=== PATIENT | male | born 1995 | race Two or more races ===

== ENCOUNTER 2016-05-16 07:35 | Emergency (ER) | payer MEDICAID, OTHER ==
[2016-05-16] MEDS ORDERED: IOPAMIDOL 300 (61%) 150 ML VIAL IV ONE (07:36)
[2016-05-16] MEDS ORDERED: LACTATED RINGERS 1,000 ML ONE (08:04)
[2016-05-16] MEDS ORDERED: HYDROMORPHONE HCL 1 MG/ML SYRINGE ONE ×2 (08:04→10:11)
[2016-05-16] MEDS ORDERED: ONDANSETRON 4 MG/2ML 2 ML VIAL ONE (08:04)
[2016-05-16 08:15] LABS: ABSOLUTE NEUTROPHIL COUNT 14.1 K/mm3 (1.8-7.7); BASO # 0.1 K/mm3 (0.0-0.2); BASO % 0.5 % (0.2-1.0); EOS % 0.2 % (0.9-2.9); HEMATOCRIT 48.3 % (32.0-52.0); HEMOGLOBIN 16.5 gm/l (14.0-18.0); IMM NEUT # 0.2 K/mm3 (0-0.2); IMM NEUT% 0.8 % (0-1); LYMPH # 3.6 (1.0-4.8); LYMPH % 18.9 % (15-45); MEAN CELL VOLUME 89.1 fl (80.0-94.0); MEAN CORPUSCULAR HEMOGLOBIN 30.4 pg (27.0-31.0); MEAN CORPUSCULAR HGB CONC 34.2 g/dl (33.0-37.0); MEAN PLATELET VOLUME 9.2 fl (7.4-10.4); MONO # 1.1 (0.0-0.8); NEUT % 73.6 % (43-75); PLATELET COUNT 320 K/mm3 (130-400); RED CELL DISTRIBUTION WIDTH 12.1 % (11.5-14.5)
[2016-05-16 08:44] LABS: ALB/GLOB RATIO 1.6 (>1.0); ALBUMIN 4.9 gm/dL (3.5-5.7); CALCIUM 10.2 mg/dL (8.6-10.3)
[2016-05-16] MEDS ORDERED: LORAZEPAM 2 MG/ML 1ML SDV ONE (08:47)
--- NOTE | 2016-05-16 10:17 | CT ---
Exam Type: ABD/PELVIS W/ CON Date and Time: 05/16/2016 9:45 AM Clinical information: Abdominal pain with nausea and vomiting. Comparison: 04/20/2010 Technique: Contiguous axial 4 mm images were obtained from the lung bases through the pelvis after the uneventful IV administration of 125 cc of Isovue-300. Sagittal and coronal reformations with high resolution lung algorithm images were also obtained at this time. CT DI: 21.2 DLP 1158.3 FINDINGS: Lung base :No abnormality is identified at the lung bases. Visualized heart:There is no pericardial effusion. LIVER: within normal limits. BILE DUCTS: normal caliber. GALLBLADDER: No calcified gallstones. Normal caliber wall. PANCREAS: within normal limits. SPLEEN: within normal limits. ADRENALS: within normal limits. KIDNEYS: within normal limits. Stomach and small BOWEL: Normal caliber. Large bowel: Air and stool are noted within the large bowel. Appendix is normal. LYMPH NODES: No enlarged mesenteric lymph nodes. PERITONEUM: no ascites or free air, no fluid collection. VESSELS: within normal limits RETROPERITONEUM: within normal limits. ABDOMINAL WALL: Incidental note is made of right inguinal testis. Bladder: Normal BONES: within normal limits. IMPRESSION: No acute inflammatory process is noted within the abdomen or pelvis. Appendix is normal. Incidental note is made of inguinal testis on the right. Close clinical and radiographic follow-up are recommended. Report was uploaded to the electronic medical record at approximately 1014 hours on 05/16/2016.
[2016-05-16] MEDS ORDERED: ONDANSETRON 4 MG ODT TAB ONE (11:39)
[2016-05-16] MEDS ORDERED: HYDROCODONE/ACETAMINOPHEN 5/325MG TABLET ONE (11:59)
== END 2016-05-16 13:00 | disposition home or self-care (01) ==
LOC: ED 07:35
DX: R10.9 Unspecified abdominal pain (principal); R19.7 Diarrhea, unspecified; R11.2 Nausea with vomiting, unspecified
CPT/HCPCS: 83690; 85025; 80053; 74177; 96375 ×2; 96376; 99284 ×2; 96374; 96361; J2060; J1170 ×2; J2405; J7120; A9270 ×2; Q9967

== ENCOUNTER 2016-05-18 08:13 | Emergency (ER) | payer MEDICAID ==
[2016-05-18] MEDS ORDERED: METOCLOPRAMIDE HCL 5 MG/ML 2ML VIAL ONE (08:51)
[2016-05-18] MEDS ORDERED: MAALOX/LIDO2%VISC/SIMETHICONE 40 ML BOT ONE (09:04)
[2016-05-18] MEDS ORDERED: KETOROLAC TROMETHAMINE 30 MG/ML 1 ML VIAL ONE (09:04)
[2016-05-18] MEDS ORDERED: MORPHINE SULFATE 2 MG/ML SYRINGE ONE (09:40)
[2016-05-18] MEDS ORDERED: DIAZEPAM 5 MG/ML SYRINGE 2 ML ONE (09:40)
[2016-05-18] MEDS ORDERED: DICYCLOMINE HCL 10 MG CAPSULE ONE (10:39)
[2016-05-18] MEDS ORDERED: HALOPERIDOL LACTATE 5 MG/1 ML AMP ONE (10:40)
[2016-05-18] MEDS ORDERED: NALBUPHINE HCL 10 MG/ML AMP ONE ×2 (11:20→11:33)
== END 2016-05-18 11:58 | disposition home or self-care (01) ==
LOC: ED 08:13
DX: R11.10 Vomiting, unspecified (principal); R10.9 Unspecified abdominal pain; Z79.891 Long term (current) use of opiate analgesic; Z79.899 Other long term (current) drug therapy

== ENCOUNTER 2016-05-20 06:31 | Emergency (ER) | payer MEDICAID ==
[2016-05-20] MEDS ORDERED: DIPHENHYDRAMINE HCL 50 MG/1 ML VIAL ONE (06:46)
[2016-05-20] MEDS ORDERED: METOCLOPRAMIDE HCL 5 MG/ML 2ML VIAL ONE (06:46)
[2016-05-20] MEDS ORDERED: KETOROLAC TROMETHAMINE 60 MG/2 ML VIAL ONE (06:46)
[2016-05-20] MEDS ORDERED: DIAZEPAM 5 MG/ML SYRINGE 2 ML ONE (06:46)
== END 2016-05-20 08:04 | disposition home or self-care (01) ==
LOC: ED 06:31
DX: R10.9 Unspecified abdominal pain (principal); R11.0 Nausea; F12.90 Cannabis use, unspecified, uncomplicated
CPT/HCPCS: 99283 ×2; 96372 ×4; J1200; J2765; J1885; J3360

== ENCOUNTER 2016-05-21 07:23 | Observation (INO) | payer MEDICAID ==
[2016-05-21] MEDS ORDERED: ONDANSETRON 4 MG/2ML 2 ML VIAL ONE (08:07)
[2016-05-21] MEDS ORDERED: NALBUPHINE HCL 10 MG/ML AMP ONE ×2 (08:08→08:20)
[2016-05-21] MEDS ORDERED: SODIUM CHLORIDE 0.9% 1,000 ML ONE (08:09)
[2016-05-21 08:11] LABS: ABSOLUTE NEUTROPHIL COUNT 13.6 K/mm3 (1.8-7.7); BASO # 0.1 K/mm3 (0.0-0.2); BASO % 0.6 % (0.2-1.0); EOS % 0.2 % (0.9-2.9); HEMOGLOBIN 16.1 gm/l (14.0-18.0); IMM NEUT # 0.1 K/mm3 (0-0.2); IMM NEUT% 0.7 % (0-1); LYMPH % 20.7 % (15-45); MEAN CELL VOLUME 87.3 fl (80.0-94.0); MEAN CORPUSCULAR HEMOGLOBIN 30.6 pg (27.0-31.0); MEAN PLATELET VOLUME 9.2 fl (7.4-10.4); MONO # 1.5 (0.0-0.8); MONO % 7.6 % (4-12); NEUT % 70.2 % (43-75); PLATELET COUNT 361 K/mm3 (130-400); RED CELL DISTRIBUTION WIDTH 11.9 % (11.5-14.5)
[2016-05-21 08:27] LABS: ALB/GLOB RATIO 1.6 (>1.0); ALBUMIN 4.8 gm/dL (3.5-5.7); CALCIUM 10.3 mg/dL (8.6-10.3)
[2016-05-21 09:44] VITALS: BMI 36.0
[2016-05-21] MEDS ORDERED: BISACODYL 5 MG TABLET.EC PO PRN (09:49)
[2016-05-21] MEDS ORDERED: SODIUM CHLORIDE 0.9% 100 ML IV PRN (09:49)
[2016-05-21] MEDS ORDERED: MAGNESIUM HYDROXIDE 30 ML UDCUP PO PRN (09:49)
[2016-05-21] MEDS ORDERED: ACETAMINOPHEN 325 MG TABLET PO PRN (09:49)
[2016-05-21] MEDS ORDERED: BLISTEX LIPSTICK 1 EACH TP PRN (09:49)
[2016-05-21] MEDS ORDERED: PROMETHAZINE HCL 25 MG/ML VIAL IM PRN (09:49)
[2016-05-21] MEDS ORDERED: BISACODYL 10 MG SUP PR PRN (09:49)
[2016-05-21] MEDS ORDERED: MENTHOL/CETYLPYRD 1 EACH LOZENGE PO PRN (09:49)
[2016-05-21] MEDS ORDERED: PUMP TUBING ONE (10:12)
[2016-05-21] MEDS: SODIUM CHLORIDE 0.9% 1,000 ML IV SCH ×2 (10:16→17:26)
[2016-05-21] MEDS ORDERED: POTASSIUM CHLORIDE 40 MEQ in SODIUM CHLORIDE 0.9% 180 ML IV SCH (10:30)
--- NOTE | 2016-05-21 11:43 | HP ---
ANJALI NIARSUZE : 1995 DATE OF ADMISSION: May 21, 2016 CHIEF COMPLAINT: Abdominal pain and vomiting. HISTORY OF PRESENT ILLNESS: Patient is a 21-year-old male who has had four visits to the emergency department in the past week for ongoing abdominal pain and vomiting. He will go home with medication. He will take the medication and feel relief during the day and then he will wake up the next morning and start vomiting again. He says his vomiting is so severe that he cannot even keep water down. There has not been any blood. It is usually bile and liquid. Over the past two weeks he has cut down his meat and fatty food consumption, but the abdominal pain has not improved. In trying to ascertain details in regard to his abdominal pain, it has been present for months. It is present in the morning and improves throughout the day. He skips breakfast due to it. He cannot remember when the abdominal pain exactly started. He cannot describe how it is except that it is intense and it is everywhere. He does not know what makes it better. He does not know what brings it on. There is no relationship to food. Over this past week he has had vomiting and diarrhea associated with this. No one else at home has been sick. Everyone has been eating similar foods. He has not tried any new foods. He has not traveled in the recent past. He was in [place] in January, but he had the abdominal pain prior to traveling to [place] and it did not worsen when he got home. There have not been any associated fevers with this. He has not tried anything to improve his symptoms. Patient has been smoking marijuana for years. He says he has increased his marijuana use over the past several months to help alleviate his abdominal pain. He ruminates over this abdominal pain as he is fearful that he is going to wake up with it, and then he does wake up with it the next day. He says the marijuana use makes it better. He does not believe this is contributing to his symptoms. He denies any hopelessness, decreased motivation, sadness and that depression is not related. REVIEW OF SYSTEMS: GENERAL: No fevers, chills. EENT: No throat pain or congestion. CARDIOVASCULAR: No chest pain or pressure. RESPIRATORY: No difficulty in breathing, shortness of breath or cough. ABDOMEN: Abdominal pain, nausea, vomiting, diarrhea. GENITOURINARY: No difficulties with urination. MUSCULOSKELETAL: No muscle aches or pains. NEUROLOGIC: No headaches, lightheadedness, dizziness, numbness, tingling. SKIN: No rashes or skin changes. PSYCHIATRIC: Denies hopeless, sadness, decreasing motivation. PAST MEDICAL HISTORY: None. ALLERGIES: NONE. CURRENT MEDICATIONS: None. FAMILY MEDICAL HISTORY: No reported family medical history. PAST SURGICAL HISTORY: None. SOCIAL HISTORY: Patient is in [employer]. He lives with his girlfriend and daughter. PHYSICAL EXAM: VITAL SIGNS: Temperature 98.0, heart rate 94, blood pressure 140/84. He is saturating 98% on room air. GENERAL: He is alert and oriented not in acute distress. He is lying flat in bed hesitant to move. HEENT: Normocephalic, atraumatic. No tenderness to palpation. His mucous membranes are moist. Pupils are equal, round, and reactive. Extraocular muscles are intact. No scleral icterus or conjunctival injection. NECK: Supple. Trachea midline. RESPIRATORY: Clear to auscultation. No rhonchi or wheezing. CARDIOVASCULAR: Positive S1 and S2. It is regular. He has palpable pulses bilaterally radially and posterior tibial. No peripheral edema. ABDOMEN: Soft, abdominal sounds are active. Diffuse tenderness, no rebound, no guarding. Fuentes's sign is negative. There is no obturator tenderness or worsening of symptoms. MUSCULOSKELETAL: He is moving all extremities without difficulty, nontender. He has 5/5 upper and lower extremity strength bilaterally. NEUROLOGIC: He is alert and oriented. LABORATORIES: He has a white blood cell count of 9.4, hemoglobin 16.1, hematocrit 46.0, with a platelet count of 361. Sodium 138, potassium 3.3, chloride 106, carbon dioxide 17, anion gap of 18 with a BUN of 11 and creatinine 1.1, glucose 138, AST 18, ALT 18, alkaline phosphatase was 61 and a lipase of 19. DIAGNOSTIC IMAGING: Abdomen and pelvis CT was obtained on May 16, 2016 and interpreted as no acute inflammatory process. Appendix is normal. He has an inguinal testes on the right. No further imaging is available. ASSESSMENT AND PLAN: This is a 21-year-old male with nausea, vomiting, and abdominal pain. It is doubtful that this is an acute gastroenteritis since he has had the pain for months. He has been afebrile. There have been no new foods and no one else is sick. So viral gastroenteritis is lower on the differential. This could be a functional abdominal syndrome or it could be hyperemesis due to his cannabis use. Patient denies either of these factors even with further conversation into the etiologies and progression of these diagnoses. We will treat him symptomatically with IV fluids, antiemetics and supplement his hypokalemia.
[2016-05-21] MEDS: ONDANSETRON 4 MG/2ML 2 ML VIAL IV PRN ×2 (14:39→20:08)
[2016-05-21] MEDS ORDERED: COENZYME Q10 200 MG PO SCH (21:00)
[2016-05-21] MEDS ORDERED: AMITRIPTYLINE HCL 50 MG TABLET PO SCH (21:00)
[2016-05-21] MEDS: DOCUSATE SODIUM 100 MG CAPSULE PO SCH (21:19)
[2016-05-22] MEDS: SODIUM CHLORIDE 0.9% 1,000 ML IV SCH ×3 (01:05→10:55)
[2016-05-22 06:51] VITALS: BP 126/88
[2016-05-22 07:09] LABS: ABSOLUTE NEUTROPHIL COUNT 6.1 K/mm3 (1.8-7.7); BASO # 0.1 K/mm3 (0.0-0.2); BASO % 0.6 % (0.2-1.0); EOS # 0.1 (0.0-0.5); EOS % 0.6 % (0.9-2.9); HEMATOCRIT 46.4 % (32.0-52.0); HEMOGLOBIN 15.6 gm/l (14.0-18.0); IMM NEUT # 0.1 K/mm3 (0-0.2); IMM NEUT% 0.7 % (0-1); LYMPH # 3.6 (1.0-4.8); MEAN CELL VOLUME 90.4 fl (80.0-94.0); MEAN CORPUSCULAR HEMOGLOBIN 30.4 pg (27.0-31.0); MEAN CORPUSCULAR HGB CONC 33.6 g/dl (33.0-37.0); MEAN PLATELET VOLUME 9.1 fl (7.4-10.4); MONO # 0.7 (0.0-0.8); MONO % 6.7 % (4-12); NEUT % 57.4 % (43-75); PLATELET COUNT 291 K/mm3 (130-400); RED CELL DISTRIBUTION WIDTH 12.1 % (11.5-14.5)
[2016-05-22] MEDS: ONDANSETRON 4 MG/2ML 2 ML VIAL IV PRN (07:25)
[2016-05-22 07:27] LABS: CALCIUM 9.7 mg/dL (8.6-10.3)
[2016-05-22] MEDS: DOCUSATE SODIUM 100 MG CAPSULE PO SCH (08:55)
--- NOTE | 2016-05-22 11:05 | PDOC5 ---
ADMIT DATE: 05/21/16 DISCHARGE DATE: 05/22/16 ADMISSION DIAGNOSES: Cyclical Vomiting Syndrome Discharge Diagnoses: Cyclical Vomiting Syndrome Daily Marijuana Use Morbid Obesity PROCEDURES PERFORMED THIS HOSPITALIZATION: None CONSULTATIONS: None HOSPITAL COURSE: This is a 21 year old male who presented to the emergency department for ongoing abdominal pain, nausea and vomiting. This was his fourth visit to the ED in about a week. Previous ED visits did not find a reason for his symptoms. He does endorse daily marijuana use but is resistant to the belief that can be contributing to his symptoms. Laboratory studies and abdominal/pelvis CT did not reveal a cause for his symptoms. As this was his 4th visit and he was slightly hypokalemic, potassium of 3.3, he was admitted for observation and symptom treatment. His nausea resolved with anti-emetics and pain subsided. He was tolerating general diet. Information was provided regarding cyclical vomiting syndrome and functional abdominal pain but the patient is resistant to accepting that his symptoms fall within these diagnoses. - Exam Vital Signs Temperature 98.6 F 05/22/16 06:50 Pulse Rate 90 05/22/16 06:50 Respiratory Rate 17 05/22/16 07:29 Blood Pressure 126/88 05/22/16 06:50 O2 Saturation by Pulse Oximetry 100 05/22/16 06:50 Oxygen Delivery Method Room Air Oxygen Flow Rate 0 General: Alert, Oriented x3, Cooperative, Other (morbidly obese), No Acute Distress HEENT: Atraumatic, PERRLA, EOMI, Mucous membr. moist/pink Lungs: Clear to Auscultation Bilaterally, Normal Air Movement Cardiovascular: Regular Rate and Rhythm, Normal S1, Normal S2 Abdomen: Soft, Normal Bowel Sounds, Non-Distended, No Rigid, No Tenderness, No Rebounding Extremities: No Cyanosis, No Edema, No Tenderness Peripheral Pulses: Radial (L): 2+, Radial (R): 2+ Neurological: Normal Speech Psych/Mental Status: Normal Mood - Results Laboratory 05/22/16 07:00 05/22/16 07:00 Laboratory Tests 05/21/16 08:02 WBC 19.4 H Potassium 3.3 L Total Bilirubin 0.7 AST 18 ALT 18 Alkaline Phosphatase 61 Total Protein 7.8 Lipase 19 Imaging Results: Abdominal/pelvis CT: no acute inflammatory process. Appendix is normal. Incidental note of inguinal testis on right. - Problems:Assessment/Plan (1) Cyclical vomiting Qualifiers: Vomiting Intractability: non-intractable Nausea presence: with nausea Qualifier Code: (G43.A0) Cyclical vomiting, not intractable Status: Acute Assessment/Plan: Reviewed condition with patient and he is highly resistant that this could be causing his symptoms. He does endorse daily marijuana use and denies that this is related to his symptoms. Laboratory studies and imaging do not reveal cause for his symptoms. Improvement with symptomatic treatment. (2) Hypokalemia Status: Acute Assessment/Plan: 2nd to vomiting and poor oral intake. Resolved with supplementation (3) Morbid obesity due to excess calories Status: Chronic Assessment/Plan: complicates medical care - Discharge Plan Prescriptions: Amitriptyline HCl [ELAVIL 50 MG TABLET (SHF)] 50 mg PO BEDTIME #30 tablet Ondansetron HCl [Zofran] 4 mg PO Q6H #30 tablet Condition: Stable Disposition: Home
== END 2016-05-22 11:40 | disposition home or self-care (01) ==
LOC: ED 07:23 → MS 09:13
PROVIDERS: ADMIT Family Medicine; ATTEND Family Medicine
DX: R11.2 Nausea with vomiting, unspecified (principal); G43.A0 Cyclical vomiting, in migraine, not intractable; F12.20 Cannabis dependence, uncomplicated; E66.01 Morbid (severe) obesity due to excess calories; E87.5 Hyperkalemia

== ENCOUNTER 2016-07-13 10:04 | Emergency (ER) | payer MEDICAID, OTHER ==
[2016-07-13] MEDS ORDERED: ONDANSETRON 4 MG/2ML 2 ML VIAL ONE (10:47)
[2016-07-13] MEDS ORDERED: DIPHENHYDRAMINE HCL 50 MG/1 ML VIAL ONE (10:47)
[2016-07-13] MEDS ORDERED: SODIUM CHLORIDE 0.9% 1,000 ML ONE ×2 (10:47→12:09)
[2016-07-13] MEDS ORDERED: METOCLOPRAMIDE HCL 5 MG/ML 2ML VIAL ONE (10:47)
[2016-07-13 10:50] LABS: ABSOLUTE NEUTROPHIL COUNT 9.7 K/mm3 (1.8-7.7); BASO # 0.1 K/mm3 (0.0-0.2); BASO % 0.7 % (0.2-1.0); EOS # 0.1 (0.0-0.5); EOS % 0.7 % (0.9-2.9); HEMATOCRIT 49.9 % (32.0-52.0); HEMOGLOBIN 16.8 gm/l (14.0-18.0); IMM NEUT # 0.1 K/mm3 (0-0.2); IMM NEUT% 0.6 % (0-1); LYMPH # 3.9 (1.0-4.8); LYMPH % 25.9 % (15-45); MEAN CELL VOLUME 91.7 fl (80.0-94.0); MEAN CORPUSCULAR HEMOGLOBIN 30.9 pg (27.0-31.0); MEAN CORPUSCULAR HGB CONC 33.7 g/dl (33.0-37.0); MEAN PLATELET VOLUME 10.7 fl (7.4-10.4); MONO % 6.5 % (4-12); NEUT % 65.6 % (43-75); PLATELET COUNT 264 K/mm3 (130-400); RED CELL DISTRIBUTION WIDTH 12.3 % (11.5-14.5)
[2016-07-13 11:01] LABS: ALB/GLOB RATIO 1.6 (>1.0); CALCIUM 10.2 mg/dL (8.6-10.3)
[2016-07-13] MEDS ORDERED: MORPHINE SULFATE 4 MG/ML SYRINGE ONE (12:09)
[2016-07-13 12:25] LABS: SPECIFIC GRAVITY 1.015 (1.001-1.030); URINE BILIRUBIN NEGATIVE (NEGATIVE); URINE BLOOD NEGATIVE (NEGATIVE); URINE GLUCOSE (UA) NEGATIVE (NEGATIVE); URINE LEUKOCYTE ESTERASE NEGATIVE (NEGATIVE); URINE NITRITE NEGATIVE (NEGATIVE); URINE PROTEIN TRACE (NEGATIVE); URINE UROBILINOGEN NORMAL (0-1 mg/dl)
[2016-07-13 12:26] LABS: URINE APPEARANCE CLEAR; URINE COLOR AMBER
[2016-07-13 12:40] LABS: AMPHETAMINES/METHAMPHETAMINES NEGATIVE (NEGATIVE); COCAINE NEGATIVE (NEGATIVE); MARIJUANA POSITIVE (NEGATIVE); METHADONE NEGATIVE (NEGATIVE); OPIATES NEGATIVE (NEGATIVE); TRICYCLIC ANTIDEPRESSANTS NEGATIVE (NEGATIVE)
[2016-07-13] MEDS ORDERED: HYDROCODONE/ACETAMINOPHEN 5/325MG TABLET ONE (12:57)
== END 2016-07-13 13:13 | disposition home or self-care (01) ==
LOC: ED 10:04
DX: R10.9 Unspecified abdominal pain (principal); G89.29 Other chronic pain; R11.10 Vomiting, unspecified; F12.10 Cannabis abuse, uncomplicated
CPT/HCPCS: 83690; 82150; 85025; 80305; 80053; 80307; 81003; 96375 ×3; 99283 ×2; 96374; 96361; J1200; J2270; J2765; J2405; J7030 ×2; A9270